=== PATIENT | male | born 1955 | race American Indian/Alaskan Native ===

== ENCOUNTER 2017-04-10 07:12 | Emergency (ER) | payer MEDICAID ==
[2017-04-10] MEDS ORDERED: LEXISCAN IV ONE ×2 (09:12→09:24)
[2017-04-10] MEDS ORDERED: ATIVAN ONE (10:17)
[2017-04-10] MEDS ORDERED: ATIVAN IV ONE (10:31)
[2017-04-10 13:58] LABS: Basophils % (Auto) 0.6 % (0.0-1.8); Eosinophils # (Auto) 0.3 K/mm3 (0.0-0.4); Eosinophils % (Auto) 5.6 % (0.0-4.3); Hematocrit 45.4 % (35.5-45.6); Hemoglobin 15.8 gm/dl (11.8-15.2); Lymphocytes # (Auto) 3.1 K/mm3 (1.2-5.4); Lymphocytes % (Auto) 50.4 % (13.4-35.0); Mean Corpuscular HGB Conc 35 % (32-34); Mean Corpuscular Hemoglobin 31 pg (28-32); Mean Corpuscular Volume 88 fl (84-94); Monocytes # (Auto) 0.5 K/mm3 (0.0-0.8); Monocytes % (Auto) 7.9 % (0.0-7.3); Platelet Count 169 K/mm3 (140-440); Red Blood Count 5.18 M/mm3 (3.65-5.03); Red Cell Distribution Width 14.1 % (13.2-15.2)
[2017-04-10 14:30] LABS: BUN/Creatinine Ratio 14; Blood Urea Nitrogen 14 mg/dL (9-20); Calcium 8.6 mg/dL (8.4-10.2); Hemolysis Index 25
--- NOTE | 2017-04-10 14:42 | Emergency Department Report ---
HPI - General Chief Complaint: Seizure Time Seen by Provider: 04/10/17 12:15 - HPI HPI: The patient is a 62-year-old male with a history of epilepsy, whom presents for evaluation of seizure activity. The patient presents from [facility] where he had a seizure during the procedure. The patient only complains of mild generalized tiredness, constant since his seizure 15 minutes ago. The patient denies fever, head injury, headache, neck pain, neck stiffness, vision or hearing changes, smell or taste changes, paresthesias, facial drooping, slurred speech, urine or bowel incontinence or retention, or other focal neurological deficit. He shares that he did not take his antiseizure medication this morning. ED Past Medical Hx - Past Medical History Hx Seizures: Yes - Social History Smoking Status: Never Smoker Substance Use Type: None ED Review of Systems ROS: Stated complaint: Other details as noted in HPI Constitutional: reports tiredness denies: fever ENT: denies: throat or neck pain Respiratory: denies: cough, shortness of breath Cardiovascular: denies: chest pain Endocrine: denies unexplained weight loss or gain Gastrointestinal: denies: abdominal pain, nausea Genitourinary: denies: dysuria Musculoskeletal: denies: leg swelling Skin: denies: rash Neurological: denies: headache Hematological/Lymphatic: denies: easy bleeding or easy bruising Psych: denies sadness or hopelessness Physical Exam - Physical Exam Vital Signs: Vital Signs 04/10/17 04/10/17 04/10/17 09:38 10:14 10:15 Temperature Pulse Rate 53 L 76 103 H Respiratory Rate Blood Pressure 115/83 135/90 156/72 O2 Sat by Pulse Oximetry 04/10/17 04/10/17 04/10/17 10:16 10:17 10:18 Temperature Pulse Rate 85 80 80 Respiratory Rate Blood Pressure 151/81 126/86 124/76 O2 Sat by Pulse Oximetry 04/10/17 04/10/17 04/10/17 10:19 10:20 11:00 Temperature Pulse Rate 77 70 Respiratory Rate Blood Pressure 120/74 138/71 128/71 O2 Sat by Pulse 100 Oximetry 04/10/17 04/10/17 04/10/17 11:15 11:30 11:46 Temperature 98.8 F Pulse Rate 55 L Respiratory Rate Blood Pressure 120/71 123/85 128/71 O2 Sat by Pulse 98 100 100 Oximetry 04/10/17 04/10/17 04/10/17 12:00 12:16 12:56 Temperature Pulse Rate Respiratory Rate Blood Pressure 133/76 133/76 133/76 O2 Sat by Pulse 100 100 100 Oximetry 04/10/17 04/10/17 04/10/17 13:00 13:16 13:30 Temperature Pulse Rate 55 L 55 L 54 L Respiratory 7 L 11 L 14 Rate Blood Pressure 131/83 131/83 127/78 O2 Sat by Pulse 100 100 100 Oximetry 04/10/17 04/10/17 13:46 14:00 Temperature Pulse Rate 57 L 54 L Respiratory 13 14 Rate Blood Pressure 127/78 123/78 O2 Sat by Pulse 100 100 Oximetry Physical Exam: General: well-nourished, well-developed, no acute distress Head: Normocephalic, atraumatic Eyes: normal sclera, PERRL, EOM intact ENT: Mucous membranes are pale and dry Neck: trachea midline, neck supple, No neck stiffness, no cervical adenopathy Respiratory: Breath sounds equal bilaterally, no wheezing, rales, or rhonchi Cardio: S1 and S2 present, no murmurs, rubs, gallops, capillary refill is delayed Abdomen: Normoactive bowel sounds, soft abdomen, no rigidity, no guarding or rebound tenderness Chest WALL/Back: No tenderness to palpation of the chest wall, no CVA tenderness with percussion Musc: No pitting edema Skin: No rash Neuro: alert oriented x4, normal cognition, speech normal, no facial drooping, no uvula or tongue deviation on protrusion, no deficit with rotation of neck or shoulder shrug, no obvious gross motor deficit in the upper or lower extremities with flexion or extension at the shoulder, elbow, wrist, hip, knee, or ankle bilaterally, no obvious gross sensation deficit to crude touch or 2 pt discrimination, 2+ symmetric reflexes on DTR testing, no coordination deficit with [id number]-[id number] or oswn-[id number] testing, romberg negative, patient able to to ambulate without abnormal gait Psych: Normal affect ED Course Vital Signs 04/10/17 04/10/17 04/10/17 09:38 10:14 10:15 Temperature Pulse Rate 53 L 76 103 H Respiratory Rate Blood Pressure 115/83 135/90 156/72 O2 Sat by Pulse Oximetry 04/10/17 04/10/17 04/10/17 10:16 10:17 10:18 Temperature Pulse Rate 85 80 80 Respiratory Rate Blood Pressure 151/81 126/86 124/76 O2 Sat by Pulse Oximetry 04/10/17 04/10/17 04/10/17 10:19 10:20 11:00 Temperature Pulse Rate 77 70 Respiratory Rate Blood Pressure 120/74 138/71 128/71 O2 Sat by Pulse 100 Oximetry 04/10/17 04/10/17 04/10/17 11:15 11:30 11:46 Temperature 98.8 F Pulse Rate 55 L Respiratory Rate Blood Pressure 120/71 123/85 128/71 O2 Sat by Pulse 98 100 100 Oximetry 04/10/17 04/10/17 04/10/17 12:00 12:16 12:56 Temperature Pulse Rate Respiratory Rate Blood Pressure 133/76 133/76 133/76 O2 Sat by Pulse 100 100 100 Oximetry 04/10/17 04/10/17 04/10/17 13:00 13:16 13:30 Temperature Pulse Rate 55 L 55 L 54 L Respiratory 7 L 11 L 14 Rate Blood Pressure 131/83 131/83 127/78 O2 Sat by Pulse 100 100 100 Oximetry 04/10/17 04/10/17 13:46 14:00 Temperature Pulse Rate 57 L 54 L Respiratory 13 14 Rate Blood Pressure 127/78 123/78 O2 Sat by Pulse 100 100 Oximetry ED Medical Decision Making - Lab Data Result diagrams: 04/10/17 13:36 04/10/17 13:36 - Medical Decision Making The patient was seen and examined by myself. The patient is placed on a cardiac cath tech and continuous pulse ox. On initial evaluation, the patient was found to be in no distress. Evaluation orders were placed. Lab results exhibited normal CK level and are grossly unrevealing. The patient was monitored in the emergency department for greater than 4 hours without any seizure-like activity. The patient was reevaluated and reported that their symptoms were markedly improved. The patient is stable for discharge with outpatient follow-up. The patient is given follow-up and return instructions. The patient expressed understanding and agreed with the plan. The patient is discharged in stable condition. Critical care attestation.: If time is entered above; I have spent that time in minutes in the direct care of this critically ill patient, excluding procedure time. ED Disposition Clinical Impression: Seizure, Dehydration, mild Disposition: DC-01 TO HOME OR SELFCARE Is pt being admited?: No Does the pt Need Aspirin: No Condition: Stable Instructions: Epilepsy (ED) Referrals: BILL MARTINES MD [Primary Care Provider] - 3-5 Days Time of Disposition: 14:35
[2017-04-10 15:02] VITALS: BP 116/71
--- NOTE | 2017-04-11 11:03 | Treadmill Report ---
INDICATION: Abnormal EKG. FINDINGS: There is no scintigraphic evidence of myocardial ischemia. The left ventricle is normal in size. Gating was not obtained due to EKG abnormalities. There is a small area of decreased uptake noted in the mid and apical anteroseptal wall, corresponding to the right ventricular insertion site. IMPRESSION: 1. This is a low risk myocardial perfusion scan associated with an adverse cardiovascular event rate of less than 1% in the next 1 year. 2. No scintigraphic evidence of myocardial ischemia noted. The patient did develop a seizure activity after Lexiscan. The patient has to be taken to the Emergency Room for treatment of seizures. JOB# [id number] CAREY/JULY
== END 2017-04-10 15:03 | disposition home or self-care (01) ==
LOC: CARD 07:12 → ED 07:12 → EDSTATUS 08:00 → ED 15:03
DX: R94.31 Abnormal electrocardiogram [ECG] [EKG] (principal); R56.9 Unspecified convulsions; E86.0 Dehydration
CPT/HCPCS: 36415; 78452; 80048; 82550; 85025; 93017; 93306; 96374; 96375; 99284; A9502; J2060; J2785

== ENCOUNTER 2017-12-31 11:31 | Outpatient (CLI) | payer MEDICAID ==
--- NOTE | 2017-12-31 12:24 | XRay Report ---
RIGHT SHOULDER RADIOGRAPHS INDICATION: Right shoulder pain. COMPARISON: None similar. FINDINGS: Frontal and Y views of the right shoulder, 3 projections demonstrate normal humeral head contour, well positioned against the glenoid. Intact acromioclavicular joint with slight spurring. Preserved scapular contour. Normal visualized soft tissues, right ribs and lung. CONCLUSION: No acute right shoulder radiographic abnormality, as described. Thank you for the opportunity to participate in this patient's care.
== END 2017-12-31 11:32 | disposition home or self-care (01) ==
LOC: XRAY 11:31
PROVIDERS: ATTEND Internal Medicine
DX: M25.511 Pain in right shoulder (principal)

== ENCOUNTER 2018-08-10 09:26 | Outpatient (CLI) | payer MEDICAID ==
[2018-08-10 10:45] LABS: Alanine Aminotransferase 16 units/L (7-56); Albumin 4.3 g/dL (3.9-5); BUN/Creatinine Ratio 10; Blood Urea Nitrogen 14 mg/dL (9-20); Calcium 9.5 mg/dL (8.4-10.2); Chol/HDL Ratio 4.25 %; HDL Cholesterol 48 mg/dL (40-59); Hemolysis Index 4; LDL Cholesterol,Direct 154 mg/dL (50-130)
[2018-08-16 20:52] LABS: Vitamin D, 25-OH, D2 <4 ng/mL
== END 2018-08-10 09:27 | disposition home or self-care (01) ==
LOC: LAB 09:26
PROVIDERS: ATTEND Internal Medicine
DX: Z13.21 Encounter for screening for nutritional disorder (principal); Z13.1 Encounter for screening for diabetes mellitus; Z13.220 Encounter for screening for lipoid disorders
CPT/HCPCS: 36415; 80053; 80061; 82306; 82607; 83036

== ENCOUNTER 2018-12-07 08:31 | Outpatient (CLI) | payer MEDICAID ==
[2018-12-07 10:12] LABS: Bilirubin,Urine NEG (Negative); Blood,Urine NEG (Negative); Color,Urine Yellow (Yellow); Protein,Urine <15 mg/dL mg/dL (Negative); Urobilinogen,Urine < 2.0 mg/dL (<2.0); WBC,Urine < 1.0 /HPF (0.0-6.0)
[2018-12-07 10:22] LABS: BUN/Creatinine Ratio 15; Blood Urea Nitrogen 19 mg/dL (9-20); Calcium 9.4 mg/dL (8.4-10.2); Chol/HDL Ratio 3.32 %; HDL Cholesterol 53 mg/dL (40-59); Hemolysis Index 8; LDL Cholesterol,Direct 119 mg/dL (50-130)
[2018-12-11 12:36] LABS: Chloride, Urine 117.2 mmolL (110-250); Creatinine,Urine 135.8 mg/dL (0.1-20.0)
== END 2018-12-07 08:32 | disposition home or self-care (01) ==
LOC: LAB 08:31
PROVIDERS: ATTEND Internal Medicine
DX: E78.5 Hyperlipidemia, unspecified (principal); E87.5 Hyperkalemia
CPT/HCPCS: 36415; 80048; 80061; 81001; 82436; 82570; 84133; 84300

== ENCOUNTER 2020-04-26 11:33 | Emergency (ER) | payer MEDICAID ==
[2020-04-26 11:52] VITALS: BP 147/94
[2020-04-26 13:26] LABS: Basophils % (Auto) 0.4 % (0.0-1.8); Eosinophils # (Auto) 0.3 K/mm3 (0.0-0.4); Eosinophils % (Auto) 3.9 % (0.0-4.3); Hemoglobin 15.8 gm/dl (11.8-15.2); Lymphocytes # (Auto) 3.5 K/mm3 (1.2-5.4); Lymphocytes % (Auto) 50.9 % (13.4-35.0); Mean Corpuscular HGB Conc 35 % (32-34); Mean Corpuscular Volume 87 fl (84-94); Monocytes # (Auto) 0.5 K/mm3 (0.0-0.8); Monocytes % (Auto) 7.9 % (0.0-7.3); Platelet Count 193 K/mm3 (140-440); Red Blood Count 5.17 M/mm3 (3.65-5.03); Red Cell Distribution Width 14.3 % (13.2-15.2)
[2020-04-26 13:41] LABS: Alanine Aminotransferase 31 units/L (7-56); Albumin 4.5 g/dL (3.9-5); BUN/Creatinine Ratio 18; Blood Urea Nitrogen 20 mg/dL (9-20); Calcium 9.6 mg/dL (8.4-10.2); Hemolysis Index 9
[2020-04-26 14:00] LABS: Bilirubin,Urine NEG (Negative); Blood,Urine NEG (Negative); Color,Urine Yellow (Yellow); Mucus,Urine FEW /HPF; Protein,Urine <15 mg/dL mg/dL (Negative); Urobilinogen,Urine < 2.0 mg/dL (<2.0)
[2020-04-26 14:08] LABS: Amphetamine Screen,Urine Negative; Benzodiazepines Screen,Urine Negative; Cannabinoid Screen,Urine Negative; Cocaine Screen,Urine Negative; Methadone Screen,Urine Negative; Opiate Screen,Urine Negative
--- NOTE | 2020-04-26 15:12 | Emergency Department Report ---
ED General Adult HPI - General Chief complaint: Medical Clearance Stated complaint: MEDICAL CLEARENCE NEEDED Time Seen by Provider: 04/26/20 12:18 Source: patient Mode of arrival: Ambulatory Limitations: No Limitations - History of Present Illness Initial comments: This is a 65-year-old male nontoxic, well nourished in appearance, no acute signs of distress presents to the ED with c/o of medical clearance due to a seizure activity in a drug rehab program that occurred yesterday. Patient stated has history of seizures but has never taking any medication. Patient stated primary care doctors Ankur Mcgregor. Last appointment was 2 months ago. Patient denies any symptoms or complaints during patient's visit today. Patient denies any headache. Patient stated he was sitting during a class and started to have bilateral upper extremity tremors. Denies any loss of consciousness, falls or injuries. Patient denies any head trauma. Patient denies any visual changes. Patient denies any numbness, tingling, fever, chills, nausea, vomiting, chest pain, shortness of breath, stiff neck. Patient denies facial drooping or one sided weakness. Patient denies any radiation of pain. Patient patient did allergies to aspirin and divalproex. Severity scale (0 -10): 0 Improves with: none Worsens with: none Associated Symptoms: denies other symptoms. denies: confusion, chest pain, cough, diaphoresis, fever/chills, headaches, loss of appetite, malaise, nausea/vomiting, rash, seizure, shortness of breath, syncope, weakness Treatments Prior to Arrival: none - Related Data Previous Rx's Medication Instructions Recorded Last Taken Type HYDROcodone/ACETAMINOPHEN [[place] 1 each PO Q4H PRN #20 tablet 02/11/18 Unknown Rx 5-325 Tablet] levETIRAcetam [Keppra TAB] 500 mg PO BID #60 tablet 04/26/20 Unknown Rx Allergies Allergy/AdvReac Type Severity Reaction Status Date / Time aspirin Allergy Rash Verified 12/20/19 15:56 divalproex sodium AdvReac Hives Unverified 12/20/19 15:56 [From [facility]] ED Review of Systems ROS: Stated complaint: MEDICAL CLEARENCE NEEDED Other details as noted in HPI Comment: All other systems reviewed and negative Constitutional: denies: chills, fever Eyes: denies: eye pain, eye discharge, vision change ENT: denies: ear pain, throat pain Respiratory: denies: cough, shortness of breath, wheezing Cardiovascular: denies: chest pain, palpitations Endocrine: no symptoms reported Gastrointestinal: denies: abdominal pain, nausea, diarrhea Genitourinary: denies: urgency, dysuria Musculoskeletal: denies: back pain, joint swelling, arthralgia Skin: denies: rash, lesions Neurological: denies: headache, weakness, paresthesias Psychiatric: denies: anxiety, depression Hematological/Lymphatic: denies: easy bleeding, easy bruising ED Past Medical Hx - Past Medical History Previous Medical History?: Yes Hx Seizures: Yes (folowed by neurology) - Surgical History Past Surgical History?: No - Social History Smoking Status: Never Smoker Substance Use Type: None - Medications Home Medications: Home Medications Medication Instructions Recorded Confirmed Last Taken Type HYDROcodone/ACETAMINOPHEN [[place] 1 each PO Q4H PRN #20 tablet 02/11/18 Unknown Rx 5-325 Tablet] levETIRAcetam [Keppra TAB] 500 mg PO BID #60 tablet 04/26/20 Unknown Rx ED Physical Exam - General Limitations: No Limitations General appearance: alert, in no apparent distress - Head Head exam: Present: atraumatic, normocephalic - Eye Eye exam: Present: normal appearance, PERRL, EOMI - Neck Neck exam: Present: normal inspection, full ROM. Absent: tenderness, meni ngismus, lymphadenopathy - Respiratory Respiratory exam: Absent: respiratory distress - Cardiovascular Cardiovascular Exam: Present: regular rate - Extremities Exam Extremities exam: Present: normal inspection, full ROM, normal capillary refill. Absent: tenderness - Back Exam Back exam: Present: normal inspection, full ROM. Absent: tenderness, CVA tenderness (R), CVA tenderness (L), muscle spasm, paraspinal tenderness, vertebral tenderness, rash noted - Neurological Exam Neurological exam: Present: alert, oriented X3, normal gait - Expanded Neurological Exam Expanded Patient oriented to: Present: person, place, time Cranial nerves: EOM's Intact: Normal, Facial Sensation: Normal Cerebellar function: Finger to Nose: Normal Upper motor neuron: Pronator Drift: Normal, Sensory Extinction: Normal Motor strength exam: RUE: 5, LUE: 5, RLE: 5, LLE: 5 Best Eye Response ([place]): (4) open spontaneously Best Motor Response (Karen): (6) obeys commands Best Verbal Response ([place]): (5) oriented Karen Total: 15 - Psychiatric Psychiatric exam: Present: normal affect, normal mood - Skin Skin exam: Present: warm, dry, intact, normal color. Absent: rash ED Course Vital Signs 04/26/20 11:51 Temperature 98.0 F Pulse Rate 73 Respiratory 18 Rate Blood Pressure 147/94 O2 Sat by Pulse 100 Oximetry - Reevaluation(s) Reevaluation #1: 04/26/20 15:09 Patient is speaking in full sentences with no signs of distress noted. - Consultations Consultation #1: 04/26/20 15:09 Patient has been consulted with Ankur Mcgregor about patient history, physical exam, and labs and stated to me that patient is noncompliant with medications. According to PCP, several attempts of Keppra has been prescribed but patient has not been taking it. Patient was also referred to neurologist which he has not followed up with. As per Dr. Singh, patient can be discharged with Keppra 500 mg BID. ED Medical Decision Making - Lab Data Result diagrams: 04/26/20 13:06 04/26/20 13:06 Lab Results 04/26/20 04/26/20 04/26/20 Range/Units 13:06 13:06 13:06 WBC 6.9 (4.5-11.0) K/mm3 RBC 5.17 H (3.65-5.03) M/mm3 Hgb 15.8 H (11.8-15.2) gm/dl Hct 45.0 (35.5-45.6) % MCV 87 (84-94) fl MCH 31 (28-32) pg MCHC 35 H (32-34) % RDW 14.3 (13.2-15.2) % Plt Count 193 (140-440) K/mm3 Lymph % (Auto) 50.9 H (13.4-35.0) % Dawson % (Auto) 7.9 H (0.0-7.3) % Eos % (Auto) 3.9 (0.0-4.3) % Baso % (Auto) 0.4 (0.0-1.8) % Lymph # (Auto) 3.5 (1.2-5.4) K/mm3 Dawson # (Auto) 0.5 (0.0-0.8) K/mm3 Eos # (Auto) 0.3 (0.0-0.4) K/mm3 Baso # (Auto) 0.0 (0.0-0.1) K/mm3 Seg Neutrophils % 36.9 L (40.0-70.0) % Seg Neutrophils # 2.6 (1.8-7.7) K/mm3 Sodium 141 (137-145) mmol/L Potassium 4.1 (3.6-5.0) mmol/L Chloride 104.1 (98-107) mmol/L Carbon Dioxide 30 (22-30) mmol/L Anion Gap 11 mmol/L BUN 20 (9-20) mg/dL Creatinine 1.1 (0.8-1.3) mg/dL Estimated GFR > 60 ml/min BUN/Creatinine Ratio 18 % Glucose 96 (75-100) mg/dL Calcium 9.6 (8.4-10.2) mg/dL Total Bilirubin 0.70 (0.1-1.2) mg/dL AST 26 (5-40) units/L ALT 31 (7-56) units/L Alkaline Phosphatase 61 (35-129) units/L Total Protein 7.6 (6.3-8.2) g/dL Albumin 4.5 (3.9-5) g/dL Albumin/Globulin Ratio 1.5 % Urine Color (Yellow) Urine Turbidity (Clear) Urine pH (5.0-7.0) Ur Specific [place] (1.003-1.030) Urine Protein (Negative) mg/dL Urine Glucose (UA) (Negative) mg/dL Urine Ketones (Negative) mg/dL Urine Blood (Negative) Urine Nitrite (Negative) Urine Bilirubin (Negative) Urine Urobilinogen (<2.0) mg/dL Ur Leukocyte Esterase (Negative) Urine WBC (Auto) (0.0-6.0) /HPF Urine RBC (Auto) (0.0-6.0) /HPF Urine Mucus /HPF Urine Opiates Screen Urine Methadone Screen Ur Barbiturates Screen Ur Phencyclidine Scrn Ur Amphetamines Screen U Benzodiazepines Scrn Urine Cocaine Screen U Marijuana (THC) Screen Drugs of Abuse Note Plasma/Serum Alcohol < 0.01 (0-0.07) % 04/26/20 04/26/20 Range/Units 13:52 13:52 WBC (4.5-11.0) K/mm3 RBC (3.65-5.03) M/mm3 Hgb (11.8-15.2) gm/dl Hct (35.5-45.6) % MCV (84-94) fl MCH (28-32) pg MCHC (32-34) % RDW (13.2-15.2) % Plt Count (140-440) K/mm3 Lymph % (Auto) (13.4-35.0) % Dawson % (Auto) (0.0-7.3) % Eos % (Auto) (0.0-4.3) % Baso % (Auto) (0.0-1.8) % Lymph # (Auto) (1.2-5.4) K/mm3 Dawson # (Auto) (0.0-0.8) K/mm3 Eos # (Auto) (0.0-0.4) K/mm3 Baso # (Auto) (0.0-0.1) K/mm3 Seg Neutrophils % (40.0-70.0) % Seg Neutrophils # (1.8-7.7) K/mm3 Sodium (137-145) mmol/L Potassium (3.6-5.0) mmol/L Chloride (98-107) mmol/L Carbon Dioxide (22-30) mmol/L Anion Gap mmol/L BUN (9-20) mg/dL Creatinine (0.8-1.3) mg/dL Estimated GFR ml/min BUN/Creatinine Ratio % Glucose (75-100) mg/dL Calcium (8.4-10.2) mg/dL Total Bilirubin (0.1-1.2) mg/dL AST (5-40) units/L ALT (7-56) units/L Alkaline Phosphatase (35-129) units/L Total Protein (6.3-8.2) g/dL Albumin (3.9-5) g/dL Albumin/Globulin Ratio % Urine Color Yellow (Yellow) Urine Turbidity Clear (Clear) Urine pH 5.0 (5.0-7.0) Ur Specific [place] 1.017 (1.003-1.030) Urine Protein <15 mg/dl (Negative) mg/dL Urine Glucose (UA) Neg (Negative) mg/dL Urine Ketones Neg (Negative) mg/dL Urine Blood Neg (Negative) Urine Nitrite Neg (Negative) Urine Bilirubin Neg (Negative) Urine Urobilinogen < 2.0 (<2.0) mg/dL Ur Leukocyte Esterase Neg (Negative) Urine WBC (Auto) 2.0 (0.0-6.0) /HPF Urine RBC (Auto) 1.0 (0.0-6.0) /HPF Urine Mucus Few /HPF Urine Opiates Screen Negative Urine Methadone Screen Negative Ur Barbiturates Screen Negative Ur Phencyclidine Scrn Negative Ur Amphetamines Screen Negative U Benzodiazepines Scrn Negative Urine Cocaine Screen Negative U Marijuana (THC) Screen Negative Drugs of Abuse Note Disclamer Plasma/Serum Alcohol (0-0.07) % - Medical Decision Making Patient is stable and was examined by me. Vital signs are stable. Labs are unremarkable. Physical exam including neuro is unremarkable. Patient was educated on seizure and importance of taking medication. Patient be discharged with Keppra as patient's request from PCP. Patient was instructed to follow-up with a primary care doctor in 3-5 days or if symptoms worsen and continue return to emergency room as soon as possible. At time of discharge, the patient does not seem toxic or ill in appearance. No acute signs of distress noted. Patient agrees to discharge treatment plan of care. No further questions noted by the patient. Critical care attestation.: If time is entered above; I have spent that time in minutes in the direct care of this critically ill patient, excluding procedure time. ED Disposition Clinical Impression: Medication refill, Seizure Disposition: DC-01 TO HOME OR SELFCARE Is pt being admited?: No Does the pt Need Aspirin: No Condition: Stable Instructions: Seizure, Adult, [id number], Levetiracetam tablets Additional Instructions: Follow-up with a primary care doctor in 3-5 days or if symptoms worsen and continue return to emergency room as soon as possible. Prescriptions: levETIRAcetam [Keppra TAB] 500 mg PO BID #60 tablet Referrals: PRIMARY CAREMD [Primary Care Provider] - 3-5 Days ANKUR SINGH MD [Staff Physician] - 3-5 Days Time of Disposition: 15:14
== END 2020-04-26 15:50 | disposition home or self-care (01) ==
LOC: ED 11:33
DX: R56.9 Unspecified convulsions (principal); Z76.0 Encounter for issue of repeat prescription; Z79.899 Other long term (current) drug therapy; Z88.8 Allergy status to other drugs, medicaments and biological substances
CPT/HCPCS: 36415; 80053; 80307; 80320; 81001; 85025; G0480

== ENCOUNTER 2020-05-07 08:29 | Emergency (ER) | payer MEDICAID ==
[2020-05-07 08:41] VITALS: BP 137/80
--- NOTE | 2020-05-07 08:45 | Emergency Department Report ---
ED Eye Problem HPI - General Chief complaint: Eye Problems Stated complaint: RT EYE REDNESS Source: patient Mode of arrival: Ambulatory Limitations: No Limitations - History of Present Illness Initial comments: 55-year-old -[place] male presents to the emergency room for 1 day history of right eye sclera redness. Patient denies any injury denies any change in vision denies any itchiness no pain. Patient does admit that he has a past medical history of seizure disorder. Does endorse he had seizure about 4 5 days ago does take Keppra. He is followed by Dr. Sulaiman Wallace. chief complaint: eye redness Onset/Timin -: days(s) Onset Description: sudden Location: right eye If Injury: none Severity scale (0 -10): 0 Treatments Prior to Arrival: none - Related Data Patient Tetanus UTD: Yes Previous Rx's Medication Instructions Recorded Last Taken Type HYDROcodone/ACETAMINOPHEN [[place] 1 each PO Q4H PRN #20 tablet 02/11/18 Unknown Rx 5-325 Tablet] levETIRAcetam [Keppra TAB] 500 mg PO BID #60 tablet 04/26/20 Unknown Rx Allergies Allergy/AdvReac Type Severity Reaction Status Date / Time aspirin Allergy Rash Verified 05/07/20 08:34 divalproex sodium AdvReac Hives Verified 05/07/20 08:34 [From Depakote] ED Review of Systems ROS: Stated complaint: RT EYE REDNESS Other details as noted in HPI Comment: All other systems reviewed and negative ED Past Medical Hx - Past Medical History Hx Seizures: Yes (folowed by neurology) - Social History Smoking Status: Current Every Day Smoker Substance Use Type: None - Medications Home Medications: Home Medications Medication Instructions Recorded Confirmed Last Taken Type HYDROcodone/ACETAMINOPHEN [[place] 1 each PO Q4H PRN #20 tablet 02/11/18 Unknown Rx 5-325 Tablet] levETIRAcetam [Keppra TAB] 500 mg PO BID #60 tablet 04/26/20 Unknown Rx ED Physical Exam - General Limitations: No Limitations General appearance: alert, in no apparent distress - Head Head exam: Present: atraumatic, normocephalic - Expanded Eye Exam Expanded Eyelids: Normal Inspection: Right Pupils: Regular, Round: Bilateral, Reactive: Bilateral, Mydriasis: Bilateral, Miosissis: Bilateral Sclera/Conjunctival: Hemorrhage: Right - ENT ENT exam: Present: mucous membranes moist - Neck Neck exam: Present: normal inspection, full ROM - Respiratory Respiratory exam: Absent: accessory muscle use - Back Exam Back exam: Present: normal inspection - Neurological Exam Neurological exam: Present: alert, oriented X3, CN II-XII intact, normal gait - Psychiatric Psychiatric exam: Present: normal affect, normal mood - Skin Skin exam: Present: warm, dry, intact, normal color. Absent: rash ED Course Vital Signs 05/07/20 08:35 Pulse Rate 89 Respiratory 20 Rate Blood Pressure 137/80 O2 Sat by Pulse 100 Oximetry ED Medical Decision Making - Medical Decision Making 55-year-old -[place] male presents to the emergency room for 1 day history of right eye sclera redness. Patient denies any injury denies any change in vision denies any itchiness no pain. Patient does admit that he has a past medical history of seizure disorder. Does endorse he had seizure about 4 5 days ago does take Keppra. He is followed by Dr. Sulaiman Wallace. Patient has a right eye hemorrhage. Vision is intact. Discussed with patient redness will dissipate and resorb. Critical care attestation.: If time is entered above; I have spent that time in minutes in the direct care of this critically ill patient, excluding procedure time. ED Disposition Clinical Impression: Eye hemorrhage Disposition: - TO HOME OR SELFCARE Is pt being admited?: No Does the pt Need Aspirin: No Condition: Stable Instructions: Subconjunctival Hemorrhage Additional Instructions: Blood will eventually reabsorb into your eye. Follow-up with your primary care provider or permit specialist. Referrals: PRIMARY CAREMD [Primary Care Provider] - 3-5 Days [facility] [Provider Group] - 3-5 Days [facility] [Provider Group] - 3-5 Days Forms: Work/School Release Form(ED)
== END 2020-05-07 09:00 | disposition home or self-care (01) ==
LOC: ED 08:29
DX: H57.89 Other specified disorders of eye and adnexa (principal); G40.909 Epilepsy, unspecified, not intractable, without status epilepticus; F17.200 Nicotine dependence, unspecified, uncomplicated; Z79.899 Other long term (current) drug therapy; Z88.6 Allergy status to analgesic agent; Z88.8 Allergy status to other drugs, medicaments and biological substances
CPT/HCPCS: 99282

== ENCOUNTER 2021-08-15 10:46 | Outpatient (CLI) | payer MEDICAID ==
[2021-08-15 11:42] LABS: Basophils % (Auto) 0.4 % (0.0-1.8); Eosinophils # (Auto) 0.2 K/mm3 (0.0-0.4); Eosinophils % (Auto) 3.4 % (0.0-4.3); Hemoglobin 15.6 gm/dl (11.8-15.2); Lymphocytes # (Auto) 2.3 K/mm3 (1.2-5.4); Lymphocytes % (Auto) 34.4 % (13.4-35.0); Mean Corpuscular HGB Conc 35 % (32-34); Mean Corpuscular Volume 88 fl (84-94); Monocytes # (Auto) 0.6 K/mm3 (0.0-0.8); Monocytes % (Auto) 8.5 % (0.0-7.3); Platelet Count 189 K/mm3 (140-440); Red Blood Count 5.11 M/mm3 (3.65-5.03); Red Cell Distribution Width 13.9 % (13.2-15.2)
[2021-08-15 11:50] LABS: Alanine Aminotransferase 29 units/L (7-56); Albumin 4.5 g/dL (3.9-5); BUN/Creatinine Ratio 18; Blood Urea Nitrogen 20 mg/dL (9-20); Calcium 9.4 mg/dL (8.4-10.2); Chol/HDL Ratio 4.12 %; HDL Cholesterol 40 mg/dL (40-59); Hemolysis Index 43; LDL Cholesterol,Direct 117 mg/dL (50-130)
== END 2021-08-15 10:47 | disposition home or self-care (01) ==
LOC: LAB 10:46
PROVIDERS: ATTEND Internal Medicine
DX: Z00.00 Encounter for general adult medical examination without abnormal findings (principal); I10 Essential (primary) hypertension; E55.9 Vitamin D deficiency, unspecified; R73.09 Other abnormal glucose; N28.9 Disorder of kidney and ureter, unspecified; R53.83 Other fatigue; E87.8 Other disorders of electrolyte and fluid balance, not elsewhere classified
CPT/HCPCS: 36415; 80053; 80061; 82306; 83036; 83735; 84439; 84443; 85025

== ENCOUNTER 2021-11-22 12:19 | Emergency (ER) | payer MEDICAID ==
[2021-11-22 13:10] VITALS: BP 115/72
--- NOTE | 2021-11-22 19:56 | Emergency Department Report ---
ED Male HPI - General Chief complaint: Skin Rash Stated complaint: PAIN IN GROIN Time Seen by Provider: 11/22/21 19:35 Source: patient Mode of arrival: Ambulatory Limitations: No Limitations - History of Present Illness Initial comments: Patient is a 66-year-old gentleman who had intercourse with a new female partner in a random manner 5 days ago and now has pain and open wounds on the foreskin. He is not circumcised. He denies any discharge or dysuria. No fevers or chills. He has noted some swelling. Denies previous STDs. swelling. denies: discharge, mass, urinary retention, blood in urine, dysuria, fever, nausea/vomiting, incontinence - Related Data Previous Rx's Medication Instructions Recorded Last Taken Type Doxycycline Hyclate 100 mg PO BID 14 Days #28 cap 11/22/21 Unknown Rx Valacyclovir HCl [Valtrex] 1,000 mg PO BID 10 Days #20 tab 11/22/21 Unknown Rx Allergies Allergy/AdvReac Type Severity Reaction Status Date / Time aspirin Allergy Rash Verified 11/22/21 13:10 divalproex sodium AdvReac Hives Verified 11/22/21 13:10 [facility] Review [facility] Systems ROS: Stated complaint: PAIN IN GROIN Other details as noted in HPI Constitutional: denies: chills, fever Eyes: denies: eye pain, eye discharge, vision change ENT: denies: ear pain, throat pain Respiratory: denies: cough, shortness of breath, wheezing Cardiovascular: denies: chest pain, palpitations Endocrine: no symptoms reported Gastrointestinal: denies: abdominal pain, nausea, diarrhea Genitourinary: as per HPI. denies: urgency, dysuria Musculoskeletal: denies: back pain, joint swelling, arthralgia Skin: denies: rash, lesions Neurological: denies: headache, weakness, paresthesias Psychiatric: denies: anxiety, depression Hematological/Lymphatic: denies: easy bleeding, easy bruising ED Past Medical Hx - Past Medical History Previous Medical History?: No Hx Hypertension: Yes Hx Seizures: Yes (folowed by neurology) - Surgical History Past Surgical History?: No - Social History Smoking Status: Current Every Day Smoker Substance Use Type: Alcohol (Occasional), Cocaine, Marijuana, Other (Crack cocainelast use 10 days ago.) - Medications Home Medications: Home Medications Medication Instructions Recorded Confirmed Last Taken Type Doxycycline Hyclate 100 mg PO BID 14 Days #28 cap 11/22/21 Unknown Rx Valacyclovir HCl [Valtrex] 1,000 mg PO BID 10 Days #20 tab 11/22/21 Unknown Rx ED Physical Exam - General Limitations: No Limitations General appearance: alert, in no apparent distress - Head Head exam: Present: atraumatic, normocephalic - Eye Eye exam: Present: normal appearance - ENT ENT exam: Present: mucous membranes moist - Neck Neck exam: Present: normal inspection - Respiratory Respiratory exam: Present: normal lung sounds bilaterally. Absent: respiratory distress - Cardiovascular Cardiovascular Exam: Present: regular rate, normal rhythm. Absent: systolic murmur, diastolic murmur, rubs, gallop - GI/Abdominal GI/Abdominal exam: Present: soft, normal bowel sounds - Rectal Rectal exam: Present: deferred - exam: Absent: testicular tenderness, urethral discharge, circumcision External exam: Present: lesions (Coalesced ulcer along the dorsal surface of the penis/foreskin versus friction tear.), other (Bilateral inguinal lymphadenopathymild). Absent: ecchymosis, bleeding - Extremities Exam Extremities exam: Present: normal inspection - Back Exam Back exam: Present: normal inspection - Neurological Exam Neurological exam: Present: alert, oriented X3 - Psychiatric Psychiatric exam: Present: normal affect, normal mood - Skin Skin exam: Present: warm, dry, intact, normal color. Absent: rash ED Course Vital Signs 11/22/21 13:08 Temperature 98.5 F Pulse Rate 84 Respiratory 18 Rate Blood Pressure 115/72 [Left] O2 Sat by Pulse 99 Oximetry ED Medical Decision Making - Medical Decision Making 66-year-old male with new unknown sexual partner and now lesions on the penis. Likely herpes but possible syphilis. He originally told me it was not painful but it was tender to touch. Could also be friction but will treat for herpes and syphilis awaiting results. - Differential Diagnosis Penile woundherpessyphilischancrefriction tear Critical care attestation.: If time is entered above; I have spent that time in minutes in the direct care of this critically ill patient, excluding procedure time. ED Disposition Clinical Impression: Penile lesion Disposition: 01 HOME / SELF CARE / HOMELESS Is pt being admited?: No Condition: Stable Instructions: Syphilis Test, Herpes Simplex Test Additional Instructions: Abstain from intercourse until all symptoms resolved, treatment complete, all partners treated or negative results. Medications as prescribed. Follow-up with health department if any test comes back positive. Prescriptions: Doxycycline Hyclate 100 mg PO BID 14 Days #28 cap Valacyclovir HCl [Valtrex] 1,000 mg PO BID 10 Days #20 tab Referrals: [facility]art [Outside] - 3-5 Days
== END 2021-11-22 21:20 | disposition home or self-care (01) ==
LOC: ED 12:19
DX: L98.8 Other specified disorders of the skin and subcutaneous tissue (principal); I10 Essential (primary) hypertension; R56.9 Unspecified convulsions; F17.200 Nicotine dependence, unspecified, uncomplicated; Z91.09 Other allergy status, other than to drugs and biological substances; Z79.899 Other long term (current) drug therapy
CPT/HCPCS: 36415; 86592; 99283